=== PATIENT | male | born 1995 | race Caucasian/White ===

== ENCOUNTER 2019-07-12 08:59 | Emergency (ER) | payer OTHER ==
[~2019-07-12] VITALS: Ht 185.4 cm; Wt 77.1 kg
[2019-07-12 10:12] LABS: ABSOLUTE NEUTROPHILS 4.5 thou/uL (1.4-8.2); BASOPHILS 0.4 % (0.0-2.0); EOSINOPHILS 1.1 % (0.0-3.0); HEMATOCRIT 44.7 % (42.0-52.0); HEMOGLOBIN 15.8 gm/dL (14.0-18.0); LYMPHOCYTES 29.4 % (24.0-44.0); MCH 31.3 pg (26.0-34.0); MCHC 35.4 g/dL (28.0-37.0); MCV 88.5 fL (80.0-100.0); MONOCYTES 8.2 % (1.0-8.0); PLATELET COUNT 210 thou/uL (150-400); POLYS 60.9 % (36.0-66.0); RBC 5.05 mil/uL (4.50-6.00); RDW 12.8 % (10.5-14.5); WBC 7.4 thou/uL (4.0-11.0)
[2019-07-12 10:18] LABS: CREATININE 1.2 mg/dL (0.7-1.3); POTASSIUM 4.1 mmol/L (3.5-5.1)
[2019-07-12 10:24] LABS: ALBUMIN 5.1 g/dL (3.4-5.0); DIRECT BILIRUBIN 0.3 mg/dL (<0.1-0.3); TOTAL BILIRUBIN 1.3 mg/dL (<0.1-1.0); TOTAL PROTEIN 8.1 g/dL (6.4-8.2)
[2019-07-12] MEDS ORDERED: KRISTALOSE20 GM PO (13:15)
[2019-07-12 13:24] VITALS: BP 135/73
== END 2019-07-12 13:24 | disposition home or self-care (01) ==
LOC: ER 08:59
PROVIDERS: Emergency Medicine
DX: S01.81XA Laceration without foreign body of other part of head, initial encounter (principal); K59.00 Constipation, unspecified; I95.1 Orthostatic hypotension; X58.XXXA Exposure to other specified factors, initial encounter; Y93.89 Activity, other specified; Y92.89 Other specified places as the place of occurrence of the external cause; Y99.8 Other external cause status

== ENCOUNTER 2019-07-18 13:57 | Emergency (ER) | payer OTHER ==
[~2019-07-18] VITALS: Ht 185.4 cm; Wt 61.2 kg
[~2019-07-18 13:57] MED LIST: KRISTALOSE20 GM PO
[2019-07-18] MEDS ORDERED: AMOXICILLIN 50500 MG PO (14:10)
[2019-07-18 15:25] VITALS: BP 108/70
== END 2019-07-18 16:10 | disposition home or self-care (01) ==
LOC: ER 13:57
DX: R68.84 Jaw pain (principal)